=== PATIENT | male | born 1960 | race Caucasian/White ===

== ENCOUNTER 2022-09-22 11:37 | Emergency (ER) | payer OTHER ==
[~2022-09-22] VITALS: Ht 172.7 cm; Wt 84.1 kg
[2022-09-22 11:43] VITALS: BP 139/82
[2022-09-22 11:45] VITALS: BP 119/75
[2022-09-22] MEDS ORDERED: LISINOPRIL10 MG PO (11:48)
[2022-09-22 12:00] VITALS: BP 115/71
[2022-09-22] MEDS ORDERED: EC-NAPROXEN500 MG PO (12:57)
[2022-09-22] MEDS ORDERED: HYDROCO/APAP1 TA9 PO (12:57)
[2022-09-22 13:03] VITALS: BP 115/71
== END 2022-09-22 13:25 | disposition home or self-care (01) | DRG 563 ==
LOC: ED 11:37
PROC: 2W3CX1Z Immobilization of Right Lower Arm using Splint (ICD-10-PCS; principal; 2022-09-22)
DX: S52.501A Unspecified fracture of the lower end of right radius, initial encounter for closed fracture (principal); I10 Essential (primary) hypertension; W18.30XA Fall on same level, unspecified, initial encounter; Y92.149 Unspecified place in prison as the place of occurrence of the external cause